=== PATIENT | male | born 1960 | race Caucasian/White ===

== ENCOUNTER 2024-09-13 02:17 | Inpatient (IN) | payer OTHER, SELFPAY ==
[2024-09-12 23:29] VITALS: BP 164/90
[2024-09-13] VITALS (12 sets, daily range): BP systolic 93–119; BP diastolic 44–93; BMI 37.8; BMI 36.9
--- NOTE | 2024-09-13 00:09 | ED.GENMED ---
History of Present Illness
General
Chief Complaint: Overdose Unintentional
Source: patient
Exam Limitations: none
Time Seen by Provider: 09/12/24 23:56
Nursing documentation reviewed up to this point in time: agreed with
History of Present Illness
History of Present Illness:
64-year-old male presents to the emergency department after accidental Lasix overdose. He took 560 mg of Lasix while watching the football game. His normally gives him his pills in a container. He mistakenly 'drank 'the wrong pill bottle
full of meds. He took 14 Lasix pills (40 mg each) instead of his nighttime meds. His states that she is responsible for giving him his meds has not been on Lasix for several weeks. Patient and deny suicidal or homicidal ideation,
intent, or plan. Patient states it was a genuine accident because he was not paying attention to his pills. He states that he has been urinating frequently.
09/13/2024 0011 AM: [facility] toxicology consulted
Review of Systems
Review of Systems
Allergies reviewed?: Yes
All Other Systems: ROS reviewed and negative except as documented in HPI and ROS
Constitutional: Reports no symptoms
EENT: Reports no symptoms
Respiratory: Reports no symptoms
Cardiac: Reports no symptoms
ABD/GI: Reports no symptoms
: Reports no symptoms
Musculoskeletal: Reports no symptoms
Skin: Reports no symptoms
Neurological: Reports no symptoms
Endocrine: Reports no symptoms
Hematologic/Lymphatic: Reports no symptoms
Psychiatric: Reports no symptoms
Phy Exam
General Physical Exam
General Presentation: well appearing and no apparent distress
General Skin: warm and dry
General Habitus: normal
General Mental: alert
General Hydration: appears well hydrated
ENT Exam
ENT Exam: EOMI, pharynx normal, neck supple and normocephalic
Eye Exam
Eye Exam: PERRL, cornea clear and conjunctiva normal
Cardiovascular Exam
Cardiovascular Exam: regular rate/rhythm, no edema, no murmur and normal peripheral pulses
Pulmonary Exam
Pulmonary Exam: lungs clear, no respiratory distress, no rales, no crackles, no rhonchi, no stridor, no wheezing and no cough
Gastrointestinal Exam
Gastrointestinal Exam: normal bowel sounds, non tender, soft, no organomegaly, no pulsatile mass and non distended
Neurological Exam
Neurological Exam: alert, oriented x3, no motor deficits and speech normal
Musculoskeletal Exam
Musculoskeletal Exam: full ROM and no edema
Skin Exam
Skin Exam: normal color, warm/dry, no rash and no petechia
Psychiatric Exam
Psychiatric Exam: normal mood/affect
Course
Orders/Labs/Results
Orders:
Orders
09/12/24 23:56
EKG- Treatment ONCE
09/12/24 23:58
0.9% Sodium Chloride 1000 ml [Nss] 1,000 ml IV BOLUS
09/12/24 23:59
Complete Blood Count/With Diff Urgent
Comprehensive Metabolic Panel Urgent
09/13/24 00:19
Magnesium Urgent
Comment: ADD ON
09/13/24 00:51
Cano Placement- Treatment ONCE
Reason for insertion: I&O's Critical Care
09/13/24 01:37
Admit/Transfer Patient As Directed
Co-Sign Provider:
Level of Care: Inpatient admission
Assign to:: IMU- Intermediate Care
Physician / Group: Jaime
Diagnosis: Unintentional Overdose
Reason for Hospitalization: Unintentional Overdose
Expected length of stay greater than two midnights?: Yes
ELOS- Estimated Length of Stay in days: 2
I certify the patient meets the requirements for IP care: Yes
09/13/24 01:38
PRN Pain Medication Management As Directed
May give lesser potent ordered pain med per pt: Yes
preference::
Protocol:: Medication orders for pain may be administered in a
manner that supports deferring to patient preference
when the pt is:
- Requesting an ordered lesser potent pain medication.
Least to most potent pain medications are defined
as: acetaminophen < NSAID < tramadol < opioids
(morphine, oxycodone, hydromorphone).
- Requesting a lesser dose of the same medication IF
ORDERED.
- Requesting a less intrusive route of administration
if both routes are prescribed by the provider (PO <
IV).
09/13/24 01:39
Code Status As Directed
Resuscitation Status: Full Code
09/13/24 01:59
Add On- LAB Urgent
Tests Added?: Magnesium
09/13/24 02:02
Potassium Urgent
09/13/24 02:43
Acetaminophen [Tylenol] 650 mg PO Q4HPRN PRN
Dextrose 50%-Water [Dextrose 50% Syringe] 12.5 grams IV [id number] PRN
Glucagon [GlucaGen] 1 mg IM PRN PRN
KCl 40 Meq/0.9%Sodchl 1000 ml [NSS with KCL 40 MEQ] 40 meq in 1,000 ml IV 125 mls/hr
09/13/24 02:43
Activity As Directed
Activity Level: Ambulate
With Assistance
Bedside Glucose Monitoring As Directed
Frequency: AC&HS
Additional Instructions:: Change to q6h if pt on TPN, tube feeding or not eating
EKG with chest pain [ECG as needed] As Directed
ECG as needed for:: Chest Pain
Cano Catheter [Catheter- Indwelling] As Directed
Reason for insertion: Acute Kidney Injury
Discontinue Date/Time: 09/16/24 0600
I/O [Intake/ Output] As Directed
Frequency: Per unit guidelines
Intake/ Output As Directed
Frequency: Per unit guidelines
Comment: strict intake and output monitoring
Vital Signs As Directed
Frequency: Per unit guidelines
Weight As Directed
Frequency: Daily
Weight As Directed
Frequency: Daily
Oxygen Therapy [O2 Therapy] [RESP] Routine
Titrate/Wean O2 to maintain O2 sat greater than (%): 94
DX Deep Vein Thrombosis Video Routine
09/13/24 04:33
Potassium Q2H
09/13/24 06:00
EKG [Electrocardiogram (*1)] IN AM
Reason for Study: Chest Pain
2000 calorie (17 carb) Diabetic
At Your Request: Full Participation
Levothyroxine [Synthroid] 50 mcg PO DAILY@0600
09/13/24 06:22
Basic Metabolic Panel IN AM
Complete Blood Count/No Diff IN AM
Glycohemoglobin (HgbA1c) IN AM
09/13/24 07:30
Insulin Aspart Corrective Mod [Novolog Flexpen-Moderate Resistance] See Protocol SC AC
09/13/24 08:00
Aspirin Chewable [Low Strength Aspirin] 81 mg PO DAILY
Desvenlafaxine Succinate [Pristiq] 50 mg PO DAILY
Gabapentin [Neurontin] 600 mg PO TID
Pantoprazole [Protonix] 40 mg PO DAILY
Rosuvastatin Calcium [Crestor] 20 mg PO DAILY
09/13/24 08:22
Potassium Q2H
09/13/24 18:00
Enoxaparin Sodium [Lovenox] 40 mg SC QPM
09/13/24 22:00
Mirtazapine [Remeron] 30 mg PO HS
Quetiapine Fumarate [Seroquel] 200 mg PO HS
Abnormal Lab Results
09/13/24
00:19
Abs Immat Gran (auto) 0.1 H 10^3/uL
(0-0.05)
Absolute Lymphs (auto) 3.6 H 10^3/uL
(1.2-3.4)
Absolute Monos (auto) 0.8 H 10^3/uL
(0.1-0.6)
Immature Gran % 0.8 H %
(0-0.5)
Neutrophils % 34.2 L %
(42.2-75.2)
Monocytes % 10.2 H %
(1.7-9.3)
Glucose 146 H mg/dl
(70-99)
09/13/24 00:19
09/13/24 02:02
Vital Signs
Initial and Last Documented VS:
Initial Vital Signs
Temp Pulse Resp BP Pulse Ox
97.6 F 90 18 164/90 97
09/12/24 23:29 09/12/24 23:29 09/12/24 23:29 09/12/24 23:29 09/12/24 23:29
Last Documented Vital Signs
Temp Pulse Resp BP Pulse Ox
97.8 F 77 19 93/66 93
09/13/24 13:31 09/13/24 12:00 09/13/24 12:00 09/13/24 12:00 09/13/24 12:00
*Critical Care Note
Total Time (30-74mins, 75-104mins- exclusive of procedures): Not Applicable
Update Note
Update Note:
09/13/2024 0108 AM: Spoke with Dr. Gladis cornelius. He recommended fluids and monitoring output. Potassium every 2 hours for the first 6. patient to be admitted for continued observation of I's and O's and potassium
ED Attending Note
-
Portions of this chart may have been created with voice recognition software.� Occasional wrong word or��sound alike� substitutions may have occurred due to the inherent limitations of voice recognition software.
Discharge Plan
Departure
Patient Disposition: Admit
Date of Disposition: 09/13/24
Time of Disposition: 01:07
Admit to: Telemetry
Presentation/result/management discussed w/ accepting MD/DO: Hospitalist
Condition: Fair
Discharge Problem:
Lasix overdose
Interventions
Interventions:
*Risk Screen - Suicide Last Done: 09/12/24 23:29
*General Assessment Last Done: 09/13/24 00:36
*Neglect/Abuse Screening Last Done: 09/12/24 23:29
ED- Fall Risk Assessment Last Done: 09/13/24 00:36
*ED COVID-19 Vaccine History Last Done: 09/13/24 01:51
*Nursing Disposition Last Done: 09/13/24 02:54
ED- Cardiac Assessment Last Done: 09/13/24 00:36
ED- Neurological Assessment Last Done: 09/13/24 00:36
ED-Psychological Assessment Last Done: 09/13/24 00:36
ED- Pulmonary Assessment Last Done: 09/13/24 00:36
Discharge Date and Time
Discharge Date/Time: 09/13/24 02:55
[2024-09-13] MEDS: NSS 1000 IV (00:21)
[2024-09-13 00:41] LABS: % Basophils 1.6 % (0-2); % Eosinophils 4.5 % (0-6); % Immature Granulocytes 0.8 % (0-0.5); % Lymphocytes 48.7 % (20.5-51.1); % Monocytes 10.2 % (1.7-9.3); % Neutrophils 34.2 % (42.2-75.2); Absolute Basophils 0.1 10^3/uL (0-0.2); Absolute Eosinophils 0.3 10^3/uL (0-0.7); Absolute Immature Granulocytes 0.1 10^3/uL (0-0.05); Absolute Lymphocytes 3.6 10^3/uL (1.2-3.4); Absolute Monocytes 0.8 10^3/uL (0.1-0.6); Absolute Neutrophils 2.5 10^3/uL (1.4-6.5); Hematocrit 40.2 % (39.0-52.0); Hemoglobin 13.8 g/dL (13.0-18.0); Mean Corp Hgb Conc. 34.3 g/dL (33.0-37.0); Mean Corpuscular Hgb 29.3 pg (27.0-31.0); Mean Corpuscular Volume 85.4 fL (80.0-94.0); Mean Platelet Volume 9.4 fL (7.4-10.4); Nucleated Red Blood Cells % 0 % (-); Platelet Count 247 10^3/uL (130-400); Red Blood Cell Count 4.71 10^6/uL (4.70-6.10); Red Cell Dist. Width 12.5 % (11.5-14.5); White Blood Cell Count 7.3 10^3/uL (4.8-10.8)
[2024-09-13 00:42] LABS: ALT (SGPT) 31 U/L (0-50); AST (SGOT) 36 U/L (17-59); Albumin 4.6 g/dl (3.5-5.0); Alkaline Phosphatase 101 U/L (38-126); Blood Urea Nitrogen 18 mg/dl (9-20); Calcium 9.3 mg/dl (8.4-10.2); Carbon Dioxide 28 mmol/L (22-30); Chloride 105 mmol/L (98-107); Estimated Creatinine Clearance 111 ml/min; Glucose 146 mg/dl (70-99); Potassium 4.3 mmol/L (3.5-5.1); Sodium 143 mmol/L (135-145); Total Bilirubin 0.4 mg/dl (0.2-1.3); Total Protein 7.5 g/dl (6.3-8.2); eGFR > 60.00
--- NOTE | 2024-09-13 01:43 | HPS.HSE ---
Family Physician
-
Family Physician: PHYSICIAN PRIVATE
Chief Complaint
-
Unintentional Overdose
History of Present Illness
Patient is a 64y M with PMH significant for cardiomyopathy, hypertension and major depression who presents to ED for evaluation after accidentally taking an excess of furosemide this evening. History obtained from patient and his at the
bedside. Patient notes that he took his evening pills around 10PM tonight. He keeps his scheduled pills in a pill bottle after they are sorted out by his . Unfortunately, instead of taking the bottle of his nightly pills - he took a bottle of
Lasix tablets. This bottle contained 10-14 tablets of Lasix 40mg. Patient took this around 10PM as stated. He has had urinary frequency - with 3 episodes of urination at home and an additional 3 episodes here in the ED.
A Cano was then placed in the ED and patient has put out approximately 600cc in the Cano device thus far.
Patient is just now beginning to experience some muscle cramping. He other peoples has no complaints.
He denies any lightheadedness, dizziness, chest pain, palpitations, SOB, N/V/D.
Patient was feeling well prior to this incident.
Patient notes that his Lasix was actually discontinued about 2 weeks ago. He previously took 40mg daily; however, this was changed to Losartan 25mg daily.
He kept the remaining Lasix pills at home as he was advised to take an occasional pill if his weight increased.
Medical History
Past Medical History
Past Medical History: Reports Other
Additional Past Medical History:
Cardiomyopathy - Unknown Type
Hypertension
DM-II
GERD
Lumbar DDD / Spinal Stenosis
Peripheral Neuropathy
Chronic Pain Syndrome
Major Depression / Anxiety
Obesity
Past Surgical History: Reports Other
Additional Past Surgical History:
Left Femur ORIF
Social History
Tobacco: Non-smoker
Alcohol: None
Drug: None
Personal:
Living: With Family
Family History
Family History: Not pertinent
Allergies / Home Medications
Allergies reflects when Allergies were last updated in [facility].
Home Medications with original date entered in [facility]
Allergy/Medication List:
Allergies
Allergy/AdvReac Type Severity Reaction Status Date / Time
No Known Allergies Allergy Verified 09/12/24 23:35
Home Medications
aspirin 81 mg chewable tablet 81 mg PO DAILY 09/13/24
carvedilol 3.125 mg tablet 3.125 mg PO BID 09/13/24
cyanocobalamin (vitamin B-12) 5,000 mcg capsule 5,000 mcg PO TUTH 09/13/24
desvenlafaxine 50 mg tablet,extended release 24 hr 50 mg PO DAILY 09/13/24
gabapentin 600 mg tablet 600 mg PO TID 09/13/24
hydroxyzine HCl 50 mg tablet 50 mg PO BID 09/13/24
insulin glargine 100 unit/mL (3 mL) subcutaneous pen (Lantus Solostar U-100 Insulin) 26 unit SC QPM 09/13/24
levothyroxine 50 mcg tablet 50 mcg PO DAILY 09/13/24
lidocaine 5 % topical patch (Lidoderm) 1 patch topical DAILY 09/13/24
losartan 25 mg tablet 25 mg PO DAILY 09/13/24
mirtazapine 30 mg tablet 30 mg PO HS 09/13/24
omeprazole 40 mg capsule,delayed release 40 mg PO DAILY 09/13/24
quetiapine 200 mg tablet 200 mg PO HS 09/13/24
rosuvastatin 20 mg tablet 20 mg PO DAILY 09/13/24
Review of Systems
-
History Source: Patient and Family
A 12 point ROS was completed and negative except as noted: Yes
Constitutional: Denies Fever, Fatigue or Chills
EENT: Denies Sore Throat
Respiratory: Denies Cough or Trouble Breathing
Cardiac: Denies Chest Pain or Palpitations
Abdomen/GI: Denies Abdominal Pain, Nausea, Vomiting or Diarrhea
: Reports Frequency; Denies Dysuria or Bleeding
Musculoskeletal: Reports Other (Chronic back pain / knee pain.); Denies Edema
Neurological: Denies Dizzy or Headache
Endocrine: Reports Polyuria
Psych: Denies Depression or Anxiety
Physical Exam
Vital Signs
Vital Signs
Temp Pulse Resp BP Pulse Ox
97.6 F 87 16 111/76 93
09/12/24 23:29 09/13/24 01:00 09/13/24 01:08 09/13/24 00:45 09/13/24 00:45
Physical Exam
General: Other (64y M in no acute distress. Somewhat flat affect.)
HEENT: Moist mucous membranes and PERRLA
Respiratory: Clear; No Wheezes, Rales or Rhonchi
Cardiac: S1/S2 and Regular Rhythm; No Murmur
GI: Soft, Non Tender, Non Distended and Normal Bowel Sounds
Genito-urinary: Other (Cano in place draining extremely clear urine.)
Musculoskeletal: No Clubbing, No Cyanosis and No Edema
Neuro: AO x 3
Laboratory Results
-
09/13/24 00:19
Laboratory Results
Total Bilirubin 0.4 mg/dl (0.2-1.3) 09/13/24 00:19
AST 36 U/L (17-59) 09/13/24 00:19
ALT 31 U/L (0-50) 09/13/24 00:19
Alkaline Phosphatase 101 U/L (38-126) 09/13/24 00:19
Impression/Plan
-
A/P: Patient is a 64y M with PMH significant for cardiomyopathy, HTN and DM-II who presents to ED for evaluation after unintentional overdose of furosemide.
Furosemide Overdose - Unintentional
- Admit for further evaluation and treatment.
- Monitor closely on tele.
- IVF replacement - adjust rate to match urine output via Cano.
- Monitor K / electrolytes closely and replace as needed - start with 40mEq KCl in his IVFs.
- Lasix effect should be exhausted between 4-6 AM.
- Hold usual antihypertensive medications, etc.
- Follow labs / lytes and monitor for any renal impairment, etc.
- Follow for any hypotension and adjust IVFs +/- pressor support if needed to maintain perfusion.
Cardiomyopathy - Unknown Type
- Patient no longer maintained on chronic diuretic therapy (discontinued about 2 weeks ago).
- Follow I/Os, daily weights, etc.
- Monitor for any respiratory issues with need for IVFs / volume replacement due to diuretic overdose.
- Follow-up with usual Cardiology as an outpatient.
Benign Hypertension
- BP on the low side after significant Lasix overdose.
- Holding carvedilol, losartan, etc acutely.
- Resume once Lasix effect is exhausted / BP stable.
DM-II
- Stable. Continue basal : bolus insulin regimen.
- Monitor glucose and cover with SSI as needed.
- Update A1C.
Anxiety / Depression
- Stable. Continue usual psychotropic medications with no changes.
Lumbar DDD
Osteoarthritis
Polyneuropathy
Chronic Pain Syndrome secondary to the above
- Stable at present. Continue usual outpatient pain control regimen.
- Follow-up with Pain Management after discharge.
Obesity due to excess calories
- Affects all aspects of care.
- Encourage healthy diet and increased activity with goal of weight loss.
DVT Prophylaxis: Lovenox
Code Status: Full
[2024-09-13 02:23] LABS: Potassium 4.1 mmol/L (3.5-5.1)
[2024-09-13 02:31] LABS: Magnesium 1.8 mg/dl (1.6-2.3)
--- NOTE | 2024-09-13 03:00 | PTCARENOTE ---
Pt admitted to IMU. AAOx3, forgetful at time. flat affect. NSR w/ 1st degree block. Traced of BLLE edema. lungs WNL. Abd round and obese. C/o back pain but it is manageable. OOBx1 . Cano catheter intact and draining clear urine. Pt appears
comfortable in bed and call edmondson within reach.
[2024-09-13] MEDS: NSS with KCL 40 MEQ 1000 IV (03:34)
[2024-09-13 04:55] LABS: Potassium 4.4 mmol/L (3.5-5.1)
[2024-09-13] MEDS: SYNTHROID 50 MCG PO (05:43)
[2024-09-13 06:48] LABS: Hematocrit 40.9 % (39.0-52.0); Hemoglobin 14.2 g/dL (13.0-18.0); Mean Corp Hgb Conc. 34.7 g/dL (33.0-37.0); Mean Corpuscular Hgb 29.6 pg (27.0-31.0); Mean Corpuscular Volume 85.4 fL (80.0-94.0); Platelet Count 240 10^3/uL (130-400); Red Blood Cell Count 4.79 10^6/uL (4.70-6.10); Red Cell Dist. Width 12.6 % (11.5-14.5); White Blood Cell Count 9.7 10^3/uL (4.8-10.8)
[2024-09-13 07:09] LABS: Blood Urea Nitrogen 19 mg/dl (9-20); Calcium 8.7 mg/dl (8.4-10.2); Carbon Dioxide 31 mmol/L (22-30); Chloride 101 mmol/L (98-107); Estimated Creatinine Clearance 123 ml/min; Glucose 122 mg/dl (70-99); Potassium 4.2 mmol/L (3.5-5.1); Sodium 141 mmol/L (135-145); eGFR > 60.00
[2024-09-13] MEDS: PROTONIX 40 MG PO (08:14)
[2024-09-13] MEDS: PRISTIQ 50 MG PO (08:14)
[2024-09-13] MEDS: CRESTOR 20 MG PO (08:14)
[2024-09-13] MEDS: LOW STRENGTH ASPIRIN 81 MG PO (08:14)
[2024-09-13] MEDS: NEURONTIN 600 MG PO (08:14)
[2024-09-13 08:34] LABS: Glucose - Point of Care 117 mg/dl (70-99)
[2024-09-13 08:55] LABS: Potassium 4.5 mmol/L (3.5-5.1)
--- NOTE | 2024-09-13 10:35 | W.PN.UPDATE ---
Update Note
Progress Note Update
Taylor is now out of his system. Electrolytes are within normal limits. Medically stable for discharge today.
--- NOTE | 2024-09-13 10:35 | W.DCSUMMARY ---
Discharge Summary
Discharge Data
Date of Admission: 09/13/24
Date of Discharge: 09/13/24
-
Pending Results: No
Hospital Course
Discharge diagnosis:
Furosemide overdose, unintentional
Unknown cardiomyopathy
Essential hypertension
Type 2 diabetes
Anxiety/depression
Lumbar degenerative disc disease
Osteoarthritis
Polyneuropathy
Chronic Pain Syndrome secondary to the above
Obesity due to excess calories
Hospital course:
64-year-old male with a past medical history of cardiomyopathy, hypertension, diabetes, degenerative disc disease, neuropathy, chronic pain syndrome, and obesity presents after taking 10-14 tablets of Lasix 40mg. Patient reports that his Lasix was
discontinued 2 weeks ago, he is only supposed to take it as needed for weight gain. He had a Cano inserted in the ER, and his urine output was monitored. His electrolytes were monitored. His potassium remained stable. His blood pressure was
monitored, and remained stable. He is medically stable for discharge. He needs to follow-up with his primary care doctor in 1 week.
Disposition: Home self-care
Discharge planning: Required 40 minutes
Discharge Plan
-
Patient Disposition: Home (Routine Discharge)
Discharge Diagnosis/Procedures: Accidental Lasix/furosemide overdose
Condition: Good
Diet: Low Fat, Low Cholesterol, 2 Gram Sodium and Diabetic, Carb Controlled
Activity: As tolerated
Driving Restrictions: As prior to admission
Specialty Instructions: Weigh Daily- Call MD for wt gain/loss 3 lbs overnight/5 lbs in 1 week
Activity Restrictions/Additional Instructions:
Please follow-up with your primary care doctor in 1 week.
Referrals:
PRIVATE,PHYSICIAN [Family Provider] - in one week
Prescriptions:
Continued
gabapentin 600 mg Tablet
600 mg PO TID
quetiapine 200 mg Tablet
200 mg PO HS
hydroxyzine HCl 50 mg Tablet
50 mg PO BID
omeprazole 40 mg Capsule,Delayed Release(Dr/Ec)
40 mg PO DAILY
carvedilol 3.125 mg Tablet
3.125 mg PO BID
levothyroxine 50 mcg Tablet
50 mcg PO DAILY
mirtazapine 30 mg Tablet
30 mg PO HS
lidocaine [Lidoderm] 5 % Adhesive Patch,Medicated
1 patch TOPICAL DAILY
losartan 25 mg Tablet
25 mg PO DAILY
aspirin 81 mg Tablet,Chewable
81 mg PO DAILY
rosuvastatin 20 mg Tablet
20 mg PO DAILY
insulin glargine [Lantus Solostar U-100 Insulin] 100 unit/mL (3 mL) Insulin Pen
26 unit SC QPM
desvenlafaxine 50 mg Tablet Extended Release 24 Hr
50 mg PO DAILY
cyanocobalamin (vitamin B-12) 5,000 mcg Capsule
5,000 mcg PO TUTH
Discharge Orders:
Discharge Patient (As Directed); Ordered 09/13/24
Ordered By: Kwaku Coles
Discharge Date and Time
Discharge Date/Time: 09/13/24 13:28
Print Language: GREENLANDIC
--- NOTE | 2024-09-13 10:50 | PTCARENOTE ---
pt aaox3. flat affect. states his legs feel restless chronic condition. refused any pain meds. latest potassium leval reported to Dr Coles. ivf stopped as ordered. room air breath sounds clear.
[2024-09-13 11:08] LABS: Glycohemoglobin (HgbA1c) 5.4 % (4.0-5.6)
--- NOTE | 2024-09-13 11:53 | CM ---
Patient who s/p unintentional overdose of Lasix. Room air. Per nurse assessment; weak gait transferring.
Met with patient and Naya;
the patient resides with his in a 2 story row house with 3 + 8 outside steps.
He has been independent in ADLs and ambulation, sometimes using his cane.
provides assistance with his medications.
DME - RW, SPC, commode, shower chair
No prior VN
Prior [facility]
PCP - Dr Killian (patient/ can't remember first name)
Pharmacy - [facility]
Patient may benefit from PT Eval.
Patient may benefit from VN nurse for medication management.
Offered VN however patient/ declined.
Plan home.
== END 2024-09-13 13:28 | disposition home or self-care (01) | DRG 918 ==
LOC: IMU 02:17
PROVIDERS: ADMITTING PHYSICIAN Hospitalist; ATTENDING PHYSICIAN Family Medicine; EMERGENCY PHYSICIAN Student in an Organized Health Care Education/Training Program
DX: T50.1X1A Poisoning by loop [high-ceiling] diuretics, accidental (unintentional), initial encounter (principal); I42.9 Cardiomyopathy, unspecified; I10 Essential (primary) hypertension; E11.40 Type 2 diabetes mellitus with diabetic neuropathy, unspecified; F41.9 Anxiety disorder, unspecified; F32.9 Major depressive disorder, single episode, unspecified; M51.369 Other intervertebral disc degeneration, lumbar region without mention of lumbar back pain or lower extremity pain; M19.90 Unspecified osteoarthritis, unspecified site; G89.4 Chronic pain syndrome; E66.09 Other obesity due to excess calories; Z68.36 Body mass index [BMI] 36.0-36.9, adult; I95.2 Hypotension due to drugs
CPT/HCPCS: 51702; 80048; 80053; 82962; 83036; 83735; 84132; 85025; 85027; 93005; 96360; 96361; 99285

== ENCOUNTER → 2025-03-10 11:21 | Outpatient (REF) | payer OTHER, SELFPAY | LOC: RCS 11:21 | PROVIDERS: FAMILY PHYSICIAN Family Medicine | DX: I50.30 Unspecified diastolic (congestive) heart failure (principal) | CPT/HCPCS: 78452; 93017; A9500; J2785 ==